=== PATIENT | male | born 1985 | race Hispanic/Latino ===

== ENCOUNTER 2018-10-11 21:34 | Emergency (ER) | payer SELFPAY ==
[2018-10-11] MEDS ORDERED: Mag-Al Plus 1200 MG/1200 MG/120 MG/30 ML UDCUP ONE (23:00)
[2018-10-11] MEDS ORDERED: Lidocaine Viscous Sol 2% 15 ml UD Cup ONE (23:00)
[2018-10-11 23:04] LABS: #Basophils 0.1 thou/uL (0.0-0.2); #Eosinphils 0.1 thou/uL (0.0-0.7); #Lymphocytes 3.6 thou/uL (1.20-3.40); #Monocytes 0.8 thou/uL (0.11-0.59); #Neutrophils 5.6 thou/uL (1.40-6.50); %Basophils 1.4 % (0.0-1.0); %Eosinophils 1.2 % (0.0-10.0); %Lymphocytes 34.8 % (21.0-51.0); %Monocytes 7.8 % (0.0-10.0); %Neutrophils 54.9 % (42.0-75.0); Hemoglobin 15.1 g/dL (14.0-18.0); Mean Corpuscular HGB CONC 35.2 g/dL (32.0-36.0); Mean Corpuscular Hemoglobin 30.7 pg (27.0-31.0); Mean Corpuscular Volume 87.1 fL (78.0-98.0); Mean Platelet Volume 7.3 fL (7.4-10.4); Platelet Count 205 thou/uL (130-400); RBC Distribution Width 12.3 % (11.5-14.5); Red Blood Cell (RBC) Count 4.93 mill/uL (4.70-6.10); White Blood Cell (WBC) Count 10.3 thou/uL (4.8-10.8)
[2018-10-11 23:15] LABS: ALT (SGPT) 155 U/L (8-55); AST (SGOT) 68 U/L (5-34); Alkaline Phosphatase 77 U/L (40-150); Anion Gap 16 mmol/L (10-20); BUN (Urea Nitrogen) 8 mg/dL (8.9-20.6); Bilirubin, Total 0.3 mg/dL (0.2-1.2); Calc. Creatinine Clearance 0 mL/min (70-130); Calcium 8.7 mg/dL (7.8-10.44); Carbon Dioxide 23 mmol/L (22-29); Chloride 106 mmol/L (98-107); Estimated GFR-MDRD Greater than 90; Globulin 2.4 g/dL (2.4-3.5); Glucose 97 mg/dL (70-105); Lipase 9 U/L (8-78); Potassium 3.9 mmol/L (3.5-5.1); Protein, Total 6.4 g/dL (6.0-8.3); Sodium 141 mmol/L (136-145)
--- NOTE | 2018-10-12 00:11 | ULT ---
GALLBLADDER ULTRASOUND: 10/11/18 HISTORY: Right upper quadrant pain. The visualized gallbladder is unremarkable. No evidence of gallstones. Common duct is normal caliber. The liver is mildly echogenic suggesting fatty infiltration. The pancreas is obscured. The right kid antwon is imaged and is unremarkable. IMPRESSION: Unremarkable gallbladder ultrasound. POS: [facility]
== END 2018-10-12 00:25 | disposition home or self-care (01) ==
LOC: SCSER 21:34
DX: K76.0 Fatty (change of) liver, not elsewhere classified (principal); F17.210 Nicotine dependence, cigarettes, uncomplicated
CPT/HCPCS: 36415; 76705; 80053; 83690; 84484; 85025; 93005

== ENCOUNTER 2023-03-07 00:12 | Emergency (ER) | payer SELFPAY ==
[2023-03-07] MEDS ORDERED: Ketorolac Tromethamine 30 MG/ML VIAL ONE (02:45)
[2023-03-07] MEDS ORDERED: Dexamethasone 10 MG/ML VIAL ONE (02:45)
[2023-03-07] MEDS ORDERED: fentaNYL 50 mcg/mL 1 mL Vial ONE (02:45)
== END 2023-03-07 03:05 | disposition home or self-care (01) ==
LOC: ERS 00:12
DX: M54.30 Sciatica, unspecified side (principal); F17.210 Nicotine dependence, cigarettes, uncomplicated
CPT/HCPCS: 72100; 96372; J1100; J1885; J3010